=== PATIENT | female | born 1965 | race African-American/Black ===

== ENCOUNTER 2017-09-01 12:14 | Emergency (ER) | payer MEDICAID, OTHER ==
[2017-09-01 12:50] LABS: #Basophils 0.1 thou/uL (0.0-0.2); #Eosinphils 0.1 thou/uL (0.0-0.7); #Lymphocytes 2.1 thou/uL (1.20-3.40); #Monocytes 0.3 thou/uL (0.11-0.59); #Neutrophils 2.4 thou/uL (1.40-6.50); %Basophils 1.5 % (0.0-1.0); %Lymphocytes 43.1 % (21.0-51.0); %Monocytes 5.3 % (0.0-10.0); %Neutrophils 49.1 % (42.0-75.0); Hemoglobin 14.3 g/dL (12.0-16.0); Mean Corpuscular HGB CONC 32.4 g/dL (32.0-36.0); Mean Corpuscular Hemoglobin 29.6 pg (27.0-31.0); Mean Corpuscular Volume 91.4 fl (81.0-99.0); Mean Platelet Volume 7.1 fL (7.4-10.4); Platelet Count 352 thou/uL (130-400); Red Blood Cell (RBC) Count 4.83 mill/uL (4.20-5.40); White Blood Cell (WBC) Count 4.9 thou/uL (4.8-10.8)
[2017-09-01 13:15] LABS: ALT (SGPT) 16 U/L (8-55); AST (SGOT) 20 U/L (5-34); Albumin 4.3 g/dL (3.5-5.0); Alkaline Phosphatase 87 U/L (40-150); Anion Gap 11 mmol/L (10-20); BUN (Urea Nitrogen) 15 mg/dL (9.8-20.1); Bilirubin, Total 0.5 mg/dL (0.2-1.2); Calc. Creatinine Clearance 0 mL/min (70-130); Calcium 9.5 mg/dL (7.8-10.44); Carbon Dioxide 28 mmol/L (22-29); Chloride 109 mmol/L (98-107); Estimated GFR-MDRD 80; Globulin 3.4 g/dL (2.4-3.5); Glucose 92 mg/dL (70-105); Potassium 4.1 mmol/L (3.5-5.1); Protein, Total 7.7 g/dL (6.0-8.3); Sodium 144 mmol/L (136-145)
== END 2017-09-01 15:01 | disposition home or self-care (01) ==
LOC: ERS 12:14
DX: I10 Essential (primary) hypertension (principal); J44.9 Chronic obstructive pulmonary disease, unspecified; F41.9 Anxiety disorder, unspecified; F17.210 Nicotine dependence, cigarettes, uncomplicated; Z91.14 Patient's other noncompliance with medication regimen
CPT/HCPCS: 36415; 80053; 85025; 93005

== ENCOUNTER 2018-05-23 11:34 | Outpatient (CLI) | payer OTHER ==
--- NOTE | 2018-05-23 13:49 | RAD ---
RIGHT KNEE TWO VIEWS: History: 52-year-old female with history of right knee pain. Possible arthritis. Fibromyalgia. FINDINGS/IMPRESSION: No fracture, dislocation or other significant acute osseous abnormality. POS: [facility]
--- NOTE | 2018-05-23 13:50 | RAD ---
RIGHT SHOULDER THREE VIEWS: History: Right shoulder pain. Comparison: None. FINDINGS: There is mild AC joint and glenohumeral joint osteoarthrosis. Visualized right lung is clear. IMPRESSION: No acute osseous abnormality. Mild AC and glenohumeral joint osteoarthrosis. POS: [facility]
--- NOTE | 2018-05-23 14:09 | RAD ---
CERVICAL SPINE TWO VIEWS: History: 52-year-old female with history of neck pain without known trauma. FINDINGS: Mild cervical spondylosis. C7 and C7-T1 and T1 are partially obscured on the lateral view. No prevert ebral soft tissue swelling. No malalignment. No evidence for acute fracture. IMPRESSION: Mild spondylosis. POS: [facility]
== END 2018-05-23 11:35 | disposition home or self-care (01) ==
LOC: BICRAD 11:34
PROVIDERS: ATTEND Internal Medicine
DX: M54.2 Cervicalgia (principal); M25.511 Pain in right shoulder; M25.561 Pain in right knee; M47.892 Other spondylosis, cervical region; M19.011 Primary osteoarthritis, right shoulder
CPT/HCPCS: 72040

== ENCOUNTER 2018-06-07 23:33 | Emergency (ER) | payer OTHER ==
[2018-06-08] MEDS ORDERED: Dexamethasone 10 MG/ML VIAL ONE (00:14)
[2018-06-08] MEDS ORDERED: Adacel (T-DAP) 0.5 ML VIAL ONE (00:14)
[2018-06-08] MEDS ORDERED: Clindamycin/D5W 900 mg/50 ml Premix Bag ONE (01:08)
[2018-06-08 01:12] LABS: #Basophils 0.1 thou/uL (0.0-0.2); #Lymphocytes 3.1 thou/uL (1.20-3.40); #Monocytes 0.6 thou/uL (0.11-0.59); #Neutrophils 4.6 thou/uL (1.40-6.50); %Basophils 0.8 % (0.0-1.0); %Eosinophils 0.6 % (0.0-10.0); %Lymphocytes 36.9 % (21.0-51.0); %Monocytes 6.6 % (0.0-10.0); %Neutrophils 55.1 % (42.0-75.0); Hemoglobin 13.2 g/dL (12.0-16.0); Mean Corpuscular HGB CONC 32.4 g/dL (32.0-36.0); Mean Corpuscular Hemoglobin 29.6 pg (27.0-31.0); Mean Corpuscular Volume 91.3 fL (78.0-98.0); Mean Platelet Volume 7.1 fL (7.4-10.4); Platelet Count 350 thou/uL (130-400); Red Blood Cell (RBC) Count 4.48 mill/uL (4.20-5.40); White Blood Cell (WBC) Count 8.3 thou/uL (4.8-10.8)
[2018-06-08 01:32] LABS: Anion Gap 10 mmol/L (10-20); BUN (Urea Nitrogen) 17 mg/dL (9.8-20.1); Calc. Creatinine Clearance 0 mL/min (70-130); Calcium 8.7 mg/dL (7.8-10.44); Carbon Dioxide 25 mmol/L (22-29); Chloride 111 mmol/L (98-107); Estimated GFR-MDRD 74; Glucose 94 mg/dL (70-105); Potassium 4.1 mmol/L (3.5-5.1); Sodium 142 mmol/L (136-145)
--- NOTE | 2018-06-08 09:17 | ULT ---
PRELIMINARY REPORT/[facility]/EMERGENTY AFTER-HOURS PROCEDURE US Left Duplex Upper Extremity Veins, Limited EXAM DATE/TIME: 06/08/2018 12:11 AM CLINICAL HISTORY: 52 years old, female; Pain and signs and symptoms; Edema, localized; Upper extremity, left; Arm; Kaye ent HX: Left lower arm edema/pain onset today TECHNIQUE: Real-time Duplex ultrasound of the Left Upper Extremity with 2-D morejon scale, color Doppler flow and s pectral waveform analysis. Limited exam focused on the left upper extremity veins. COMPARISON: No relevant prior studies available. FINDINGS: Left deep veins: Unremarkable. Axillary and brachial veins are patent throughout without thrombus. No rmal compressibility, augmentation response and Doppler waveforms. Visualized internal jugular and jackson bclavian veins are patent. Left superficial veins: Unremarkable. Visualized cephalic and basilic veins are patent without thromb us. Soft tissues: Mild soft tissue edema within the distal aspect of the upper arm. IMPRESSION: 1. No DVT. 2. Mild soft tissue edema within the distal aspect of the upper arm. Thank you for allowing us to participate in the care of your patient. Dictated and Authenticated by: Arben Barahona MD 06/08/2018 1:08 AM Central Time ([place] & [place]) FINAL REPORT VENOUS DUPLEX SONOGRAM LEFT UPPER EXTREMITY: DATE: 06/08/2018. TIME: Performed on an emergency basis at 0037 hours. HISTORY: Left arm pain and edema. FINDINGS: Agree with the preliminary report by Dr. Barahona from [facility]. Good color and spectral Dopp ler flow. No sonographic evidence of DVT. POS: [facility]
== END 2018-06-08 02:16 | disposition home or self-care (01) ==
LOC: ERS 23:33
DX: L03.114 Cellulitis of left upper limb (principal); I10 Essential (primary) hypertension; J44.9 Chronic obstructive pulmonary disease, unspecified; F41.9 Anxiety disorder, unspecified; F17.210 Nicotine dependence, cigarettes, uncomplicated; Z79.899 Other long term (current) drug therapy
CPT/HCPCS: 80048; 85025; 87040; 90471; 90715; 96365; 96375; J1100; J3490

== ENCOUNTER 2019-10-14 09:56 | Emergency (ER) | payer OTHER, SELFPAY ==
[2019-10-14] MEDS ORDERED: HYDROcodone/Acetaminophen 5/325 mg Tablet ONE (10:58)
[2019-10-14] MEDS ORDERED: predniSONE 20 MG TAB ONE (10:59)
== END 2019-10-14 11:15 | disposition home or self-care (01) ==
LOC: ERS 09:56
DX: M06.9 Rheumatoid arthritis, unspecified (principal); M79.7 Fibromyalgia; J44.9 Chronic obstructive pulmonary disease, unspecified; I10 Essential (primary) hypertension; F17.210 Nicotine dependence, cigarettes, uncomplicated; F41.9 Anxiety disorder, unspecified
CPT/HCPCS: 99283; J7512

== ENCOUNTER 2024-04-18 09:46 | Emergency (ER) | payer OTHER, SELFPAY ==
[2024-04-18 10:17] LABS: #Basophils Less than 0.03 10x3/uL (0.0-0.2); %Basophils 0.4 % (0.0-1.0); %Eosinophils 1.7 % (0.0-10.0); %Lymphocytes 52.3 % (21.0-51.0); %Monocytes 6.9 % (0.0-10.0); %Neutrophils 38.5 % (42.0-75.0); Hematocrit 36.8 % (36.0-47.0); Hemoglobin 12.1 g/dL (12.0-16.0); Mean Corpuscular HGB CONC 32.9 g/dL (32.0-36.0); Mean Corpuscular Hemoglobin 28.6 pg (27.0-31.0); Mean Platelet Volume 9.2 fL (7.4-10.4); Platelet Count 327 10x3/uL (130-400); Red Blood Cell (RBC) Count 4.23 mill/uL (4.20-5.40)
[2024-04-18 10:38] LABS: ALT (SGPT) 15 U/L (8-55); AST (SGOT) 19 U/L (5-34); Albumin 3.5 g/dL (3.5-5.0); Alkaline Phosphatase 79 U/L (40-110); Anion Gap 10 mmol/L (10-20); BUN (Urea Nitrogen) 11 mg/dL (9.8-20.1); Bilirubin, Total 0.3 mg/dL (0.2-1.2); Calc. Creatinine Clearance 0 mL/min (70-130); Calcium 9.5 mg/dL (7.8-10.44); Carbon Dioxide 26 mmol/L (22-29); Chloride 111 mmol/L (98-107); Estimated GFR 80; Globulin 3.4 g/dL (2.4-3.5); Glucose 107 mg/dL (70-105); Potassium 4.2 mmol/L (3.5-5.1); Protein, Total 6.9 g/dL (6.0-8.3); Sodium 143 mmol/L (136-145)
[2024-04-18] MEDS ORDERED: Albuterol 2.5 MG (0.5 mL) NEB ONE (10:38)
[2024-04-18] MEDS ORDERED: predniSONE 20 MG TAB ONE (10:38)
[2024-04-18] MEDS ORDERED: Ipratropium/Albuterol 3 ML NEB ONE (10:39)
[2024-04-18] MEDS ORDERED: Albuterol 2.5 MG (3 mL) NEB ONE (10:42)
[2024-04-18 10:44] LABS: Troponin I Less than 0.010 ng/mL (< 0.028)
[2024-04-18 11:41] LABS: Influenza A by NAA Not Detected (NotDetected); Influenza B by NAA Not Detected (NotDetected); SARS-CoV-2 NAA Rapid Test Not Detected (NotDetected)
== END 2024-04-18 12:20 | disposition home or self-care (01) ==
LOC: ERS 09:46
DX: J44.1 Chronic obstructive pulmonary disease with (acute) exacerbation (principal); I10 Essential (primary) hypertension; F17.210 Nicotine dependence, cigarettes, uncomplicated
CPT/HCPCS: 71046; 80053; 83880; 84484; 85025; 93005; J7512; J7611; J7620